=== PATIENT | female | born 1980 | race Asian ===

== ENCOUNTER 2025-06-10 11:45 | Outpatient (AMB) | payer MEDICAID, SELFPAY ==
[2025-06-10 11:48] VITALS: BP 122/88; PULSE 95; O2SAT 99; BMI 25.8
--- NOTE | 2025-06-10 11:48 | HO.NEPHOV ---
Vital Signs 06/10/25 11:48 Height 5 ft 2 in Weight 141 lb BMI 25.8 BP 122/88 Blood Pressure Location Lt brachial Position Sitting Pulse 95 Pulse Source Pulse Oximeter Pulse Oximetry (%) 99 Oxygen Delivery Method Room Air Intake Visit Reasons: Kidney Karina , was a pt in [facility].- Conf Military Pay Clerk Required: No Accompanied by: Spouse Allergies No Known Allergies Allergy (Verified 06/10/25 11:50) HPI Comments Details: I had the privilege of seeing Anshul in follow-up of her proteinuria as well as renal calculus. She has history of longstanding diabetes mellitus and is on insulin. She says her last A1c has been close to 7. She denies any retinopathy, neuropathy, excessive froth or foam in the urine. She has not had any history of recent renal stones(has history of hydronephrosis from obstructive stone in the past). She denied any hematuria, flank pain, urinary infections, edema. She denied taking excessive nonsteroidal anti-inflammatories and tries to maintain good hydration. She was prescribed Jardiance in the past but had to be discontinued due to recurrent urinary infections. She has not had any recent blood work or urine studies. She feels well. [facility] Medical History (Updated 06/10/25 @ 12:10 by Jaime Cardona MD) Proteinuria Nephrolithiasis Hydronephrosis Review of Systems Const All systems reviewed & are unremarkable except as noted in HPI and below Physical Exam Vital Signs: Last Vital Signs Pulse 95 06/10/25 11:48 BP 122/88 06/10/25 11:48 Pulse Ox 99 06/10/25 11:48 Oxygen Delivery Method Room Air 06/10/25 11:48 BMI result Body Mass Index 25.8 Const General: comfortable and no acute distress Orientation/consciousness: patient oriented x3 HEENT Head: Yes normocephalic Mouth: Normal oral and palatal mucosa present Eyes EOM: EOMs intact bilaterally Neck Neck: Yes supple Resp Auscultation: clear to auscultation bilaterally Cardio Jugular venous distension: no JVD Rate: regular rate GI Palpation (GI): Soft to palpation Auscultation: normal bowel sounds General: Yes no CVA tenderness Back/Spine/Pelvis Back: no CVA tenderness Skin General skin exam: no rashes or lesions noted Neuro General: patient oriented x3 and moves all extremities Extrem General: Yes no pedal edema Assessment & Plan Assessment & Plan (1) Nephrolithiasis: Code(s): N20.0 - Calculus of kidney Category: Medical (2) Proteinuria: Code(s): R80.9 - Proteinuria, unspecified Category: Medical Qualifiers: Proteinuria type: other Qualified Code(s): R80.8 - Other proteinuria Plan Low-sodium diet and adequate hydration. Minimize nonsteroidal anti-inflammatories Continue current dose of lisinopril and amlodipine She was prescribed Jardiance in the past (but had to be discontinued due to recurrent urinary infections) Ordered follow-up lab work. Shall arrange follow-up renal imaging with time I did not make any medication changes today. All these were explained in detail to her and her Follow-up appointment given Orders: Orders Protein Creatinine Ratio, Ur 6 Months N20.0 - Calculus of kidney, R80.9 - Proteinuria, unspecified Electrolytes 6 Months N20.0 - Calculus of kidney, R80.9 - Proteinuria, unspecified Blood Urea Nitrogen 6 Months N20.0 - Calculus of kidney, R80.9 - Proteinuria, unspecified Creatinine 6 Months N20.0 - Calculus of kidney, R80.9 - Proteinuria, unspecified Hemoglobin A1c 6 Months N20.0 - Calculus of kidney, R80.9 - Proteinuria, unspecified Calcium 6 Months N20.0 - Calculus of kidney, R80.9 - Proteinuria, unspecified Coding Level of Care Code Est Pt Level 4 (55648) Diagnoses Nephrolithiasis N20.0 Other proteinuria R80.8 Proteinuria type: other
--- OUTSIDE RECORDS SUMMARY | 2025-06-10 15:50 | XMS_ITS | Clinical Summary ---
Author Organization [facility] Address [address] [place] [address] Phone Care Team Providers Care Government Relations Manager Name Role Phone Jose DanielWillow garcia EXCHANGE OPERATOR Primary Care Provider [phone] Allergies Active Allergy Reactions Criticality Noted Date Comments Insulin Glargine-Lixisenatide Rash Low 2020 C/O: rash in body Medications cetirizine (ZyrTEC) 10 MG tablet Take 1 tablet by mouth if needed 07/28/2020 Active lisinopril (PRINIVIL,ZESTRI L) 40 MG tablet Take 1 tablet by mouth 1 (one) time each day 04/30/2019 Active metFORMIN (GLUCOPHAGE) 500 MG tablet Take 1 tablet by mouth 2 (two) times a day 10/20/2017 Active atorvastatin (LIPITOR) 40 MG tablet Take 1 tablet by mouth at bed time 01/25/2021 Active Lantus SoloStar 100 UNIT/ML injection 03/28/2021 Active Jardiance 25 MG tablet Take 25 mg by mouth 1 (one) time each day 05/09/2022 Active Active Problems Problem Noted Date Diagnosed Date Cyst of bilateral ovaries 03/09/2021 Overview (04/09/2021): 01/14/2021: [facility]: US of pelvis: mpression: 1. Bilateral ovarian cysts, likely physiologic. 2. Trace free fluid in the pelvis. Chronic kidney disease due to type 2 diabetes me llitus 08/11/2020 Proteinuria 08/11/2020 Renal stone 08/11/2020 Hydronephrosis 02/16/2020 Overview (08/11/2020): 01/25/2020: [facility]: CT of abd//pelvis: IMPRESSION: 1. Mild left hydronephrosis and hydroureter with trace periureteral stranding. Punctate nonobstructive calculus in the lower pole. No significant perinephric stranding or fluid. Pyelonephritis is not favored however cannot be excluded. 2. Mild thickening of the urinary bladder wall for degree of distention, consistent with cystitis. 3. Hepatomegaly with diffusely decreased attenuation consistent with fatty infiltration. Cholelithiasis without evidence of cholecystitis. Nephrolithiasis 02/16/2020 Essential hypertension 11/10/2013 Resolved Problems Problem Noted Date Diagnosed Date Resolved Date Overweight 08/11/2020 04/08/2021 Calculus of gallbladder with out cholecystitis without obstruction 02/16/2020 04/08/2021 Overview (08/11/2020): 01/25/2020: [facility]: CT of abd//pelvis: IMPRESSION: 1. Mild left hydronephrosis and hydroureter with trace periureteral stranding. Punctate nonobstructive calculus in the lower pole. No significant perinephric stranding or fluid. Pyelonephritis is not favored however cannot be excluded. 2. Mild thickening of the urinary bladder wall for degree of distention, consistent with cystitis. 3. Hepatomegaly with diffusely decreased attenuation consistent with fatty infiltration. Cholelithiasis without evidence of cholecystitis. Eczema 11/14/2019 04/08/2021 Hypertriglyceridemia 11/14/201904/08/ 021 Type 2 diabetes mellitus 02/01/2018 Headache 07/14/2015 04/08/2021 Goiter 07/14/2015 04/08/2021 Overview (08/11/2020): Sees endo tsh- normal thyroid antibodies- normal. Gestational diabetes mellitus 03/12/2015 04/08/2021 Hyperthyroidism 02/23/2015 04/08/2021 Overview (08/11/2020): Sees Endo at [facility]: on Methimazole. Steatotic liver disease 07/04/201403/13 Overview (08/11/2020): By ultrasound 07/02/2014 Immunizations Immunization Administration Dates Next Due Hepatitis B 08/10/2017,07/04/2014,05/22/2014 Influenza (IM) Preservative Free 05/13/2013 Influenza TIV (IM) 03/12/2015 Influenza Vaccine, Quadrivalent, Adjuvanted 03/12 Influenza, Quadrivalent, Preservative Free 02/25,05/15/2018,03/03/2016 Moderna SARS-COV-2 10/27/2020,09/29/2020 PPD Test 08/13/2013 Tdap 03/03/2016 Family History Medical History Relation Comments Diabetes Father Hypertension Mother Relation Status Comments Father Alive Mother Alive Social History Tobacco Use Types Packs/Day Years Used Date Smoking Tobacco: Never Smokeless Tobacco: Never Tobacco Cessation:Counseling Given: Not Answered Alcohol Use Standard Drinks/Week Comments No 0 (1 standard drink = 0.6 oz pur e alcohol) Comments Unknown Sex and Gender Information Value Date Recorded Sex Assigned at Not on file Legal Sex Female 4:52 PM EST Gender Identity Not on file Sexual Orientation Not on file Last Filed Vital Signs Vital Sign Reading Time Taken Comments Blood Pressure 100/70 06/20/2022 5:01 PM EST Pulse 85 04/09/2021 1:48 PM EDT Temperature - - Respiratory Rate - - Oxygen Saturation 99% 04/09/2021 1:48 PM EDT Inhaled Oxygen Concentration - - Weight 64 kg (141 lb 3.2 oz) 06/20/2022 5:01 PM EST Height 160 cm (5' 3 ) 05/19/2020 12:00 PM EST Body Mass Index 25.01 05/19/2020 12:00 PM EST Plan of Treatment Health Maintenance Due Date Last Done Comments Hepatitis B Vaccine (1 of 3 - 19+ 3-dose series) 1998 08/10/2017, 07/04/2014, 05/22/2014 Pneumococcal Vaccine: Peds ( 0 to 5 Years) and At-Risk Patients (6 to 49 Years) (1 of 2 - PCV) 1998 Diabetes: Ophthalmology Exam 07/10/2020 Diabetes: Pedal Pulse Checked 07/10/2020 Diabetes: Sensory Foot Exam 07/10/2020 Diabetes: Visual Foot Exam 07/10/2020 Diabetes: Hemoglobin A1C 08/04/2022 022, 08/25/2021, 02/25/2021, Additional history exists Influenza Vaccine (#1) 2025 , 03/28/2020, 05/15/2018, Additional history exists [place] Care Teams Government Relations Manager Relationship Specialty Start Date End Date Willow Brooks NP [address] [place] [address] PCP - General Nurse Practitioner 04/09/21
--- OUTSIDE RECORDS SUMMARY | 2025-06-10 15:50 | XMS_ITS | Clinical Summary ---
Author Organization [facility] Address [address] [place] [address] Care Team Providers Care Sports Management Internship Name Role Phone Unavailable Primary Care Provider Unavailabl e Social History Tobacco Use Types Packs/Day Years Used Date Smoking Tobacco: Never Assessed Comments Unknown Sex and Gender Information Value Date Recorded Sex Assigned at Not on file Legal Sex Female 9:22 PM EDT Gender Identity Not on file Sexual Orientation Not on file Plan of Treatment Health Maintenance Due Date Last Done Comments CT Colonography 1979 Colonoscopy 1979 Depression Screening 1979 FIT 1979 Lipid Panel 1979 SDOH Screening 1979 Sigmoidoscopy 1979 Disability Screening 1979 Alcohol/Substance Use Screening 1991 Tobacco Screening 1991 Family Planning (PISQ) 1994 HPV Vaccines (1 - 3-dose series) 1994 Hepatitis C Screening 1997 Hepatitis A Vaccines (1 of 2 - Risk 2-dose series) 1998 Pap Smear 2000 Cervical Cancer Screening 2009 HPV/Cotest 2009 Mammogram 2019 COVID-19 Vaccine ( season) 2025 07/01/2022, 08/25/2021, 10/27/2020, Additional history exists FOBT 08/02/2025 08/02/2024 DTaP/Tdap/Td Vaccines (2 - Td or Tdap) 03/03/2026 03/03/2016 Colorectal Cancer Screening 08/02/2027 FIT DNA/Cologuard 08/02/2027 08/02/2024 Zoster Vaccines (1 of 2) 2029 RSV Patients and Patients Aged 60 years or older (1 - 1-dose 75+ series) 2054 HIV Screening Completed 05/13/2013 Hepatitis B Vaccines Completed 08/10/2017, 07/04/2014, 05/22/2014 Pneumococcal Vaccine: Pediatrics (0 to 5 Years) and At-Risk Patients (6 to 49) Years Aged Out 07/01/2022 No longer eligible based on patient's age to complete this topic Influenza Vaccine Completed 04/11/2025, , 03/24/2023, Additional history exists HIB Vaccines Aged Out No longer eligi ble based on patient's age to complete this topic IPV Vaccines Aged Out No longer eligi ble based on patient's age to complete this topic Meningococcal B Vaccine Aged Out No l onger eligible based on patient's age to complete this topic Meningococcal Vaccine Aged Out No susan debra eligible based on patient's age to complete this topic RSV under 20 months Aged Out No longe r eligible based on patient's age to complete this topic Rotavirus Vaccines Aged Out No longer eligible based on patient's age to complete this topic
--- OUTSIDE RECORDS SUMMARY | 2025-06-10 15:50 | XMS_ITS | Clinical Summary ---
Author Organization [facility] Address [address] [place] [address] Phone Care Team Providers Care Horticultural Services Supervisor Name Role Phone Physician, No Pcp Primary Care Provider Unavaila ble Social History Tobacco Use Types Packs/Day Years Used Date Smoking Tobacco: Never Assessed Comments No Sex and Gender Information Value Date Recorded Sex Assigned at Not on file Legal Sex Female 2:53 PM EST Gender Identity Not on file Sexual Orientation Not on file Obstetrics History Para Term AB IAB SAB Ectopic Multiple Livin g Live Births 3 Last Filed Vital Signs Vital Sign Reading Time Taken Comments Blood Pressure - - Pulse - - Temperature - - Respiratory Rate - - Oxygen Saturation - - Inhaled Oxygen Concentration - - Weight 63.5 kg (140 lb) 08/13/2024 10:05 AM EST Height 157.5 cm (5' 2 ) 08/13/2024 10:05 AM EST Body Mass Index 25.61 08/13/2024 10:05 AM EST Plan of Treatment Health Maintenance Due Date Last Done Comments Diabetes: Annual Foot Exam 1989 Diabetes: Annual Retina Eye Exam 1989 Hepatitis A Vaccines (1 of 2 - Risk 2-dose series) 1998 Cervical Cancer Screening: Pap Smear 2000 HPV Vaccines (1 - 3-dose SCDM series) 2006 Medicare Annual Wellness Visit 05/11/2022 Social Influencers of Health Screening 05/11/2022 Depression Screening 2024 COVID-19 Vaccine ( season) 2025 07/01/2022, 08/25/2021, 10/27/2020, Additional history exists Diabetes: Blood Sugar Control Test (HGBA1C) 10/27/2025 04/29/2025, 06/26/2024 Diabetes: Annual Urine Albumin-Creatinine Ratio (uACR) 12/20/2025 12/20/2024, 09/07/2022, 05/04/2022, Additional history exists DTaP,Tdap,and Td Vaccines (4 - Td or Tdap) 03/03/2026 03/03/2016, 11/11/2014, 10/03/2013 Diabetes: Annual GFR (Glomerular Filtration Rate) 04/29/2026 04/29/2025, 06/26/2024 Hypertension/CHF/CAD Annual BMP Blood Test 04/29/2026 04/29/2025, 06/26/2024 Breast Cancer Screening 08/13/2026 08/14/19, 12/09/2022, 10/24/2021 Colorectal Cancer Screening: FIT-DNA (Cologuard) 08/02/2027 08/02/2024 Cholesterol Screening (Lipid Panel) 06/26/2029 06/26/2024, 06/26/2024, 07/20/2023, Additional history exists RSV Immunization Adult Patients (1 - 1-dose 75+ series) 2054 HIV Screening Completed 05/13/2013 Hepatitis B Vaccines Completed 08/10/2017, 07/04/2014, 05/22/2014 Pneumococcal Vaccine: Pediatrics (0 to 5 Years) and At-Risk Patients (6 to 49 Years) Aged Out 07/01/2022 No longer eligible based on patient's age to complete this topic Influenza Vaccine Completed 04/11/2025, , 03/24/2023, Additional history exists Hepatitis C Screening Completed 04/29/2025, 024 HIB Vaccines Aged Out No longer eligi ble based on patient's age to complete this topic IPV Vaccines Aged Out No longer eligi ble based on patient's age to complete this topic MMR Vaccines Aged Out No longer eligi ble based on patient's age to complete this topic Meningococcal ACWY Vaccine Aged Out N o longer eligible based on patient's age to complete this topic Meningococcal B Vaccine Aged Out No l onger eligible based on patient's age to complete this topic RSV Immunization Patients Under 20 months Aged Out No longer eligible based on patient's age to complete this topic Varicella Vaccines Aged Out No longer eligible based on patient's age to complete this topic Procedures Procedure Name Priority Date/Time Associated Diagnosis Comments MG MAMMO DIGITAL SCREENING W YASSINE BILAT Routine 08/13/2024 10:17 AM EST Encounter for screening mammogram for malignant neoplasm of breast from Last 3 Months or Most Recently Relevant to Health Maintenance Results * MG Mammo Digital Screening w Yassine bilat (08/13/2024 10:17 AM EST) Anatomical Region Laterality Modality Breast Bilateral Mammography 08/13/2024 11:4 0 AM EST Impressions 08/13/2024 11:46 AM EST No mammographic evidence of malignancy. No suspicious interval change. A negative mammogram in the presence of a clinically suspicious palpable abnormality does not preclude the possibility of malignancy or alter the indications for biopsy. ASSESSMENT: BI-RADS 1: NEGATIVE RECOMMENDATION(S): 1: Routine screening mammogram BILATERAL in 1 year. [facility]amm[facility] location[facility] [address], [address] -------- FINAL REPORT -------- Dictated By: Stanley Dillard Dictated Date: 08/13/2024 11:40 ET Assigned Physician: Stanley Dillard Reviewed and Electronically Signed By: Stanley Dillard Signed Date: 08/13/2024 11:46 ET Workstation ID: [id number] Transcribed By: Self Edit Transcribed Date: 08/13/2024 11:40 ET Narrative 08/13/2024 11:46 AM EST EXAM: SCREENING MAMMOGRAPHY, BILATERAL HISTORY: SCREENING. No additional history. COMPARISON: 12/09/2022, 10/23/2021 TECHNIQUE: Synthesized CC and MLO projections of each breast. Tomosynthesis of each breast in the CC and MLO projections. ADDITIONAL IMAGING: None Computer-aided detection was employed with the roomlinxD [address] AI 3-D. TISSUE DENSITY: The breasts are heterogeneously dense, which may obscure small masses. (BI-RADS category C) FINDINGS: RIGHT BREAST: No suspicious mass. No suspicious calcification. No distortion. No additional suspicious right breast findings LEFT BREAST: No suspicious mass. No suspicious calcification. No distortion. No additional suspicious left breast findings Procedure Note Stanley Dillard MD - 03/04/2025 EXAM: SCREENING MAMMOGRAPHY, BILATERAL HISTORY: SCREENING. No additional history. COMPARISON: 12/09/2022, 10/23/2021 TECHNIQUE: Synthesized CC and MLO projections of each breast.Tomosynthesis of each breast in the CC and MLO projections. ADDITIONAL IMAGING: None Computer-aided detection was employed with the iCAD [employer] AI 3-D. TISSUE DENSITY: The breasts are heterogeneously dense, which may obscuresmall masses. (BI-RADS category C) FINDINGS: RIGHT BREAST: No suspicious mass. No suspicious calcification. No distortion. Noadditional suspicious right breast findings LEFT BREAST: No suspicious mass. No suspicious calcification. No distortion. Noadditional suspicious left breast findings IMPRESSION: No mammographic evidence of malignancy. No suspicious interval change. A negative mammogram in the presence of a clinically suspicious palpableabnormality does not preclude the possibility of malignancy or alter theindications for biopsy. ASSESSMENT: BI-RADS 1: NEGATIVE RECOMMENDATION(S): 1: Routine screening mammogram BILATERAL in 1 year. [facility] location[facility] at [address], [address] -------- FINAL REPORT -------- Dictated By: Stanley Dillard Dictated Date: 08/13/2024 11:40 ET Assigned Physician: Stanley Dillard Reviewed and Electronically Signed By: Stanley Dillard Signed Date: 08/13/2024 11:46 ET Workstation ID: [id number] Transcribed By: Self Edit Transcribed Date: 08/13/2024 11:40 ET Willow Brooks NP IMG BI PROCEDURES Final Result from Last 3 Months or Most Recently Relevant to Health Maintenance Insurance MEDICAID - [place] [employer] MEDICARE ADVANTAGE Care Teams Horticultural Services Supervisor Relationship Specialty Start Date End Date Physician, No Pcp PCP - General 07/02/24
== END 2025-06-10 12:15 | disposition home or self-care (01) ==
LOC: HO.HKAS 11:45
PROVIDERS: PCP Nurse Practitioner Family; Visit Provider Internal Medicine Nephrology
DX: N20.0 Calculus of kidney (principal); R80.8 Other proteinuria
CPT/HCPCS: 99214

== ENCOUNTER → 2025-06-10 11:45 | Outpatient (BNVA) | payer MEDICAID, SELFPAY | PROVIDERS: PCP Nurse Practitioner Family; Visit Provider Internal Medicine Nephrology | DX: N20.0 Calculus of kidney (principal); N39.0 Urinary tract infection, site not specified; R80.8 Other proteinuria; Z79.899 Other long term (current) drug therapy | CPT/HCPCS: 99212 ==